=== PATIENT | female | born 1980 ===

== ENCOUNTER 2022-03-22 20:27 | Emergency (ER) | payer OTHER ==
[2022-03-22] MEDS ORDERED: Sulfamethoxazole/Trimethoprim 800-160 MG Tab PO ONE (20:28)
== END 2022-03-22 21:20 | disposition home or self-care (01) ==
LOC: FB.ED 20:27
DX: N39.0 Urinary tract infection, site not specified (principal); Z88.0 Allergy status to penicillin; Z88.8 Allergy status to other drugs, medicaments and biological substances
CPT/HCPCS: 81001; 87086; 87088; 87186; 99283; A9270